=== PATIENT | female | born 1955 | race Caucasian/White ===

== ENCOUNTER → 2017-07-21 | Outpatient (CLI) | payer BC ==
[~2017-07-21] MED LIST: HCTZ 25MG TAB25 MG PO; NEXIUM 40MG40 MG PO; ZOCOR 20MG20 MG PO
== END ==
LOC: MC.RAD 11:32
DX: Z12.31 Encounter for screening mammogram for malignant neoplasm of breast (principal)

== ENCOUNTER → 2018-08-01 | Outpatient (CLI) | payer BC | LOC: MC.RAD 10:35 | DX: Z12.31 Encounter for screening mammogram for malignant neoplasm of breast (principal) ==

== ENCOUNTER 2018-12-05 11:42 | Observation (INO) | payer BC ==
[~2018-12-05] VITALS: Ht 170.2 cm; Wt 70.4 kg
[2018-12-05 12:15] LABS: CREATININE, serum 0.86 mg/dL (0.52-1.25)
[2018-12-05 14:15] VITALS: BP 129/79; PULSE 88; TEMP 98.3
[2018-12-05] MEDS ORDERED: COZAAR 50MG50 MG/TAB PO (14:18)
[2018-12-05] MEDS ORDERED: OMEGA-3 1000 MG1 CAP PO (14:19)
[2018-12-05] MEDS ORDERED: MAGNESIUM200 MG PO (14:19)
[2018-12-05] MEDS ORDERED: VITAMIN D 400400 IU PO (14:20)
[2018-12-05] MEDS ORDERED: K2 PO (14:26)
[2018-12-05 16:55] VITALS: BP 112/82; PULSE 81; TEMP 98.4
[2018-12-05 17:53] LABS: HEMOGLOBIN 11.4 g/dl (12.5-16.0); MEAN CELL VOLUME 88 fl (80.0-100.0); MEAN CORPUSCULAR HEMOGLOBIN 30 pg (27.0-31.0); MEAN CORPUSCULAR HGB CONC 34 g/dl (33.0-37.0); MEAN PLATELET VOLUME 10.8 fl (7.4-10.4); PLATELET COUNT 197 K/mm3 (130-400); RED BLOOD COUNT 3.78 M/mm3 (4.10-5.30); REDCELL DISTRIBUTION WIDTH-CV 13.8 % (11.5-14.5)
[2018-12-05 17:58] LABS: HEMATOCRIT 33.4 % (37.0-47.0)
[2018-12-05 18:07] LABS: ALBUMIN 3.7 gm/dL (3.5-5.0); BILIRUBIN,TOTAL 0.7 mg/dL (0.0-1.0); CALCIUM 8.7 mg/dL (8.4-10.2); CREATININE, serum 0.66 mg/dL (0.52-1.25); POTASSIUM 3.5 mmol/L (3.4-5.0); TOTAL PROTEIN 6.6 gm/dL (6.4-8.2)
[2018-12-05 18:18] LABS: C-REACTIVE PROTEIN 14.7 mg/dL (0.0-0.9)
[2018-12-05 18:50] LABS: ANISOCYTOSIS 1+; BAND 1 % (0-10); LYMPHOCYTE 13 % (20.0-51.0); METAMYELOCYTE 1 % (0-0); NEUTROPHILS 83 % (42.0-75.2); PLATELET ESTIMATE NORMAL (NORMAL)
--- NOTE | 2018-12-05 19:32 | NUR ---
Patient resting in bed. & rounded this afternoon. Patient pain managed with Iv morphine & tylneol for headache. She is tolerating clears without nausea. Scds ble. Ivf per orders. Inital, 5 page & med rec were completed on admission. Miguel ESPINOSA given bedside shit report
[2018-12-05 19:35] VITALS: BP 111/69; PULSE 68; TEMP 98.1
--- NOTE | 2018-12-05 19:45 | NUR ---
Pt. laying in bed at this time. Pt. is A&OX3, assessment complete. IV to rt. AC patent, IV fluids infusing per orders. Pt. denies pain or other needs at this time. Call light within reach.
[2018-12-06] VITALS: BP 111/75; PULSE 65; TEMP 97.8
[2018-12-06 05:30] VITALS: BP 112/65; PULSE 64; TEMP 97.9
--- NOTE | 2018-12-06 05:58 | NUR ---
Pt. slept well through the night. Pt. remains A&OX3. INT to rt. forearm remains patent, IV fluids infusing per orders. Pt. denies pain or other needs at this time. Call light within reach.
--- NOTE | 2018-12-06 07:51 | NUR ---
Patient resting in bed this am. Alert & oriented. She reports her headache & abdominal pain has returned. Tylenol & morphine for pain per orders. Ivf as ordered to Rac. Patient tolerates clears, denies nausea. Scds. Encouraged activity & ambulation in the halls. Will monitor
[2018-12-06 08:24] VITALS: BP 128/67; PULSE 61; TEMP 98.3
--- NOTE | 2018-12-06 10:09 | NUR ---
Patient nauseated-zofran given. Patient did end up having emesis. Breakfast she ordered did not settle. She only ate a few bites. She is resting now, she is feeling better after emesis. Wilbert damian
--- NOTE | 2018-12-06 10:24 | NUR ---
Initial visit; Patient thanked [employer] for looking in on her and offering God's blessings and keeping her in [employer]'s prayers.
--- NOTE | 2018-12-06 11:02 | NUR ---
Patient resting in bed. Abdomial pain increased again. Morphine Prn for pain. Her at bedside. Will monitor
--- NOTE | 2018-12-06 11:19 | NUR ---
SW met with patient and about discharge plans. Patient plans to discharge home. Patient's PCP Teresa Haddad and she obtains prescriptions from [facility]. Patient does not use any DME or home health services. Patient does not recall if she has completed DPOA but is interested in completing one. SW provided form. SW will return when patient is ready to sign. SW does not anticipate any discharge needs.
[2018-12-06 12:27] VITALS: BP 117/71; PULSE 62; TEMP 98.7
[2018-12-06 13:53] LABS: BASO % 0.6 % (0.0-2.0); EOS # 0.1 (0.0-0.7); GRAN # 5.1 (1.4-6.5); GRAN % 76.3 % (42.2-75.2); LYMPH # 1.1 (1.2-3.4); LYMPH % 16.2 % (20.0-51.0); MEAN CELL VOLUME 91 fl (80.0-100.0); MEAN CORPUSCULAR HEMOGLOBIN 31 pg (27.0-31.0); MEAN CORPUSCULAR HGB CONC 34 g/dl (33.0-37.0); MEAN PLATELET VOLUME 10.4 fl (7.4-10.4); MONO # 0.4 (0.1-0.6); MONO % 5.3 % (1.7-9.3); PLATELET COUNT 173 K/mm3 (130-400); RED BLOOD COUNT 3.58 M/mm3 (4.10-5.30); REDCELL DISTRIBUTION WIDTH-CV 13.6 % (11.5-14.5)
[2018-12-06 13:54] LABS: HEMATOCRIT 32.6 % (37.0-47.0)
[2018-12-06 17:09] VITALS: BP 124/82; PULSE 70; TEMP 98.5
[2018-12-06 19:35] VITALS: BP 134/80; PULSE 74; TEMP 98.6
--- NOTE | 2018-12-06 19:35 | NUR ---
Patient doing much better this evening. She has progressed diet & tolerated well. Denies nausea & reports a good appetite. Patient pain in better control, not requiring IV morphine now. Tylenol for Pain once. Ivf per orders & antibioitcs. Patient ambulated the halls with her spouse. Denies needs. Bedside report to night nurse
--- NOTE | 2018-12-06 20:50 | NUR ---
Pt resting in bed, C/O mild ABD pain, shift assessments complete, laft Pt call light inn reach, bed in lowest position.
[2018-12-07 00:01] VITALS: BP 108/69; PULSE 68; TEMP 98.1
[2018-12-07 04:30] VITALS: BP 128/73; PULSE 61; TEMP 98
== END 2018-12-07 11:40 | disposition home or self-care (01) ==
LOC: COL.RAD 11:42 → SURG 13:53
PROVIDERS: Internal Medicine Gastroenterology; Physician Assistant; ADMIT Surgery
DX: R10.31 Right lower quadrant pain (principal); K21.9 Gastro-esophageal reflux disease without esophagitis; I10 Essential (primary) hypertension; E78.5 Hyperlipidemia, unspecified; Z90.710 Acquired absence of both cervix and uterus; Z85.828 Personal history of other malignant neoplasm of skin; Z83.71 Family history of colonic polyps
CPT/HCPCS: A4216; G0378; G0379; J0696; J1650; J2270; J2405; J7120; Q9967

== ENCOUNTER → 2019-01-12 | Outpatient (CLI) | payer BC ==
[~2019-01-12] MED LIST changes: +COZAAR 50MG50 MG/TAB PO; +K2 PO; +MAGNESIUM200 MG PO; +OMEGA-3 1000 MG1 CAP PO; +VITAMIN D 400400 IU PO
== END ==
LOC: COL.RAD 08:08
DX: K38.8 Other specified diseases of appendix (principal); R93.3 Abnormal findings on diagnostic imaging of other parts of digestive tract
CPT/HCPCS: Q9967

== ENCOUNTER 2019-10-09 06:34 | Day surgery (SDC) | payer BC ==
[~2019-10-09] VITALS: Ht 172.7 cm; Wt 75.9 kg
[2019-10-09 08:38] VITALS: BP 144/82; PULSE 66; TEMP 97.8
[2019-10-09] MEDS ORDERED: MULTIPLE VITAMI1 CAP PO (08:53)
[2019-10-09] MEDS ORDERED: NORCO 325 MG-51 TAB PO ×2 (13:37→13:38)
[2019-10-09 14:04] VITALS: TEMP 98
[2019-10-09 14:20] VITALS: BP 155/81; PULSE 79
[2019-10-09 14:35] VITALS: BP 155/80; PULSE 75
[2019-10-09 14:50] VITALS: BP 160/95; PULSE 79
[2019-10-09 15:05] VITALS: BP 152/82; PULSE 71
== END 2019-10-09 15:33 | disposition home or self-care (01) ==
LOC: SDCO 06:34
DX: C50.011 Malignant neoplasm of nipple and areola, right female breast (principal); Z17.0 Estrogen receptor positive status [ER+]; I10 Essential (primary) hypertension; K21.9 Gastro-esophageal reflux disease without esophagitis; Z85.828 Personal history of other malignant neoplasm of skin; Z90.710 Acquired absence of both cervix and uterus; Z82.49 Family history of ischemic heart disease and other diseases of the circulatory system; Z80.8 Family history of malignant neoplasm of other organs or systems
CPT/HCPCS: A9541; J0690; J1100; J2250; J2405; J2704; J3010; J7120

== ENCOUNTER → 2020-07-25 | Outpatient (CLI) | payer MEDICARE, OTHER ==
[~2020-07-25] MED LIST changes: +MULTIPLE VITAMI1 CAP PO; +NORCO 325 MG-51 TAB PO
== END ==
LOC: MC.RAD 09:54
DX: Z12.31 Encounter for screening mammogram for malignant neoplasm of breast (principal); Z98.890 Other specified postprocedural states; Z98.82 Breast implant status; Z92.3 Personal history of irradiation

== ENCOUNTER → 2021-01-26 | Outpatient (CLI) | payer MEDICARE, OTHER | LOC: MC.RAD 08:52 | DX: Z92.3 Personal history of irradiation (principal); Z98.890 Other specified postprocedural states; C50.111 Malignant neoplasm of central portion of right female breast ==

== ENCOUNTER → 2021-07-27 | Outpatient (CLI) | payer MEDICARE, OTHER | LOC: MC.RAD 09:22 | DX: C50.411 Malignant neoplasm of upper-outer quadrant of right female breast (principal); C50.412 Malignant neoplasm of upper-outer quadrant of left female breast; Z98.890 Other specified postprocedural states ==

== ENCOUNTER 2021-12-05 18:33 | Emergency (ER) | payer MEDICARE, OTHER ==
[~2021-12-05] VITALS: Ht 170.2 cm; Wt 81.8 kg
[2021-12-05 19:01] VITALS: TEMP 98.9
[2021-12-05 19:45] VITALS: BP 182/103; PULSE 81
== END 2021-12-06 01:50 | disposition home or self-care (01) ==
LOC: COL.ER 18:33
DX: I10 Essential (primary) hypertension (principal); Z79.899 Other long term (current) drug therapy

== ENCOUNTER → 2023-11-10 | Outpatient (CLI) | payer MEDICARE, OTHER | LOC: COL.RAD 12:03 | DX: I80.252 Phlebitis and thrombophlebitis of left calf muscular vein (principal); C50.111 Malignant neoplasm of central portion of right female breast ==

== ENCOUNTER → 2023-11-30 | Outpatient (CLI) | payer MEDICARE, OTHER | LOC: MC.RAD 13:55 | DX: Z12.31 Encounter for screening mammogram for malignant neoplasm of breast (principal) ==